=== PATIENT | male | born 1980 | race Caucasian/White ===

== ENCOUNTER 2025-08-13 07:41 | Emergency (ER) | payer OTHER, BC ==
[2025-08-13] MEDS: Iopamidol 755 Mg/ML 100 ML Bottle IVPUSH ONE (08:00)
[2025-08-13 08:02] LABS: BASOPHILS ABSOLUTE AUTO 0.05 K/uL (0.00-0.20); BASOPHILS PERCENT AUTO 0.8 % (0.0-1.0); EOSINOPHILS ABSOLUTE AUTO 0.05 K/uL (0.00-0.45); EOSINOPHILS PERCENT AUTO 0.8 % (0.0-6.0); IMMATURE GRAN ABSOLUTE AUTO 0.05 K/uL (0.00-0.05); IMMATURE GRAN PERCENT AUTO 0.8 % (0.0-0.4); LYMPHOCYTES ABSOLUTE AUTO 2.91 K/uL (1.00-4.80); LYMPHOCYTES PERCENT AUTO 47.8 % (24.0-44.0); MEAN PLATELET VOLUME 9.6 fL (9.4-12.4); MONOCYTES ABSOLUTE AUTO 0.66 K/uL (0.00-0.80); MONOCYTES PERCENT AUTO 10.8 % (0.0-8.0); NEUTROPHILS ABSOLUTE AUTO 2.37 K/uL (1.80-7.70); NEUTROPHILS PERCENT AUTO 39.0 % (41.0-71.0); NRBC ABSOLUTE 0.00 K/uL (0.00-0.02); NRBC PERCENT 0.0 /100WBC (0.0-0.2); PLATELET COUNT,PLT 218 K/uL (150-400); RED BLOOD CELL COUNT 4.34 M/uL (4.52-5.90); WHITE BLOOD CELL COUNT,WBC 6.09 K/uL (3.9-11.3)
[2025-08-13] MEDS: ceFAZolin 1 GM in Water For Injection, Sterile 10 ML IVPUSH ONE (08:06)
[2025-08-13 08:22] LABS: A/G RATIO 1.5 (0.9-1.6); ALANINE AMINOTRANSFERASE,ALT 28.0 IU/L (14-63); ASPARTATE AMNIOTRANSFERASE,AST 41.0 IU/L (15-37); BILIRUBIN TOTAL 0.7 mg/dL (0.2-1.0); BLOOD UREA NITROGEN,BUN 11.0 mg/dL (7.0-18.0); CARBON DIOXIDE,CO2 27.8 mmol/L (21.0-32.0); CHLORIDE,CL 107.0 mmol/L (98-107); CREATININE 1.0 mg/dL (0.8-1.3); EST CRCL DRUG DOSING (CG) 100.23 mL/min; ETHANOL BLOOD MEDICAL 271.0 mg/dL; GLUCOSE RANDOM 115.0 mg/dL (74-106); POTASSIUM,K 3.3 mmol/L (3.5-5.1); PROTEIN TOTAL,TP 7.9 g/dL (6.4-8.2); SODIUM,NA 147.0 mmol/L (136-148)
[2025-08-13 08:28] LABS: ESTIMATED GFR 93.0 mL/min (>60)
[2025-08-13 08:31] LABS: INR 1.07 (0.86-1.11)
[2025-08-13 08:35] LABS: APPEARANCE,URINE CLEAR; GLUCOSE,URINE NEGATIVE (NEGATIVE); OCCULT BLOOD,URINE NEGATIVE (NEGATIVE)
[2025-08-13] MEDS: Lidocaine 1% with EPINEPHrine 1:100,000 10 ML MDV INJECT ONE (08:46)
[2025-08-13] MEDS: Potassium Chloride 20 MEQ Tab.ER PO ONE (08:47)
[2025-08-13 08:52] LABS: AMPHETAMINES SCREEN, URINE NEGATIVE (CUTOFF=500); BUPRENORPHINE SCREEN,URINE NEGATIVE (CUTOFF=10); METHADONE SCREEN, URINE NEGATIVE (CUTOFF=200); METHAMPHETAMINES SCREEN, URINE NEGATIVE (CUTOFF=500); OXYCODONE SCREEN,URINE NEGATIVE (CUT0FF=100); PCP SCREEN,URINE NEGATIVE (CUTOFF=25); THC SCREEN,URINE 20 NG/ML PRESUMPTIVE POSITIVE (CUTOFF=50)
[2025-08-13 09:05] LABS: LACTIC ACID 2.4 mmol/L (0.4-2.0)
[2025-08-13] MEDS: Bacitracin Oint 1 GM U/D Packet TOP ONE (09:15)
== END 2025-08-13 10:24 | disposition home or self-care (01) ==
LOC: MW.ED 07:41
DX: S22.32XA Fracture of one rib, left side, initial encounter for closed fracture (principal); S01.312A Laceration without foreign body of left ear, initial encounter; I10 Essential (primary) hypertension; Z88.8 Allergy status to other drugs, medicaments and biological substances; Z79.899 Other long term (current) drug therapy; V69.9XXA Occupant (driver) (passenger) of heavy transport vehicle injured in unspecified traffic accident, initial encounter
CPT/HCPCS: 12013; 36415; 70450; 71260; 72125; 74177; 80053; 80305; 80307; 81003; 83605; 85025; 85610; 85730; 86850; 86900; 86901; 96374; 99285; A9270; J0690; J2004; Q9967; 12011; 99284